=== PATIENT | male | born 1970 | race Caucasian/White ===

== ENCOUNTER 2019-04-18 13:00 | Inpatient (IN) ==
[2019-04-18] MEDS ORDERED: ONDANSETRON 4 MG/2 ML VIAL IV ONE (14:14)
[2019-04-18] MEDS ORDERED: 0.9 % SODIUM CHLORIDE 1,000 ML IV ONE (14:14)
[2019-04-18] MEDS ORDERED: PHENobarb/HYOSCY/ATROPINE/SCOP 1 DOSE BOTTLE PO ONE (14:15)
--- NOTE | 2019-04-18 14:19 | Emergency Department Note ---
Skin/Abscess/FB HPI - General Chief complaint: Skin/Abscess/Foreign Body Stated complaint: right foot sore Time Seen by Provider: 04/18/19 13:31 Source: patient Mode of arrival: wheelchair Limitations: no limitations - History of Present Illness HPI Narrative: This 49-year-old male comes emergency room because his right second third third toe has a sore on it. He is not very good at explaining or delineating exactly what happened with this. He reports that he has had a previous amputation a year ago of his right big toe. He is nauseated and has had multiple episodes of vomiting overnight. He has had a chronic lesion/ulcer/diabetic slow healing scab lesion of his right valdez. He developed a little bit of pain into the area of his toe although he says he has diabetic neuropathy and has not had feeling in his legs; some discomforts over the last 2 weeks. He denies fever, chills, sweats. REVIEW OF SYSTEMS: Denies chest pain, denies abdominal pain. Some nausea. Has been vomiting more than 10 times is a part of heartburn. It is hard for him to talk and breathe because of the discomfort in his throat. Denies diarrhea or constipation. Denies dysuria Denies headaches or weakness or lightheaded/dizziness. Has some chronic anxiety and depression. For this he has sertraline but his jar in his back of pills is without a top on it. Patient denies diabetic eye or kidney disease. He is type I diabetic since age 32. He is uncertain whether he still taking ramipril which is in his list. - Related Data Previous Rx's Medication Instructions Recorded insulin glargine 100) 100 unit/mL 20 unit SUB-Q QHS #10 ml 12/19/15 subcutaneous solution insulin lispro 100) 100 unit/mL 10 unit SUB-Q TID #10 ml 12/19/15 subcutaneous solution ramipril 2.5 mg capsule 2.5 mg PO QDAY #60 cap 12/19/15 Amoxicillin/Potassium Clav 875 mg PO Q12H #20 tablet 12/27/15 [Augmentin] blood sugar diagnostic See Dose Instructions .ROUTE 03/25/16 .MEDSUPPLY #100 each blood-glucose meter See Dose Instructions .ROUTE 03/27/16 .MEDSUPPLY #1 each Azithromycin [Zithromax] 250 mg PO DAILY #6 tablet 10/25/16 Cefuroxime [Ceftin] 500 mg PO Q12 #20 tablet 10/25/16 Furosemide [Lasix] 40 mg PO DAILY #7 tablet 11/01/16 Allergies Allergy/AdvReac Type Severity Reaction Status Date / Time No Known Drug Allergies Allergy Verified 04/18/19 13:04 Past Medical History - Past Medical History [facility] Narrative: Medical History Dental abscess (Acute) Pulmonary infiltrate in right lung on chest x-ray (Acute) Dyspnea (Acute) Pulmonary edema (Acute) Hyperglycemia (Acute) Tobacco abuse (Chronic) Type I diabetes mellitus (Chronic) Past Surgical History H/O knee surgery (Chronic) Family History Aunts Diabetes mellitus Medical history: Reports: DM (Type I, insulin using, since age 32.), hypertension, other (Peripheral neuropathy, diabetic). Denies: CVA, myocardial infarction Psychiatric history: Reports: anxiety, depression Surgical history ED: Reports: orthopedic, other (Right hallux amputation) - Social History smoking status: Current every day smoker Alcohol use: Reports: None Drug use: Reports: none, marijuana Physical Exam Limitations: no limitations General appearance: alert, in no apparent distress Head: atraumatic, normocephalic Eye: Present: EOMI Extremities: Present: other (Second toe, right foot, with severely necrotic and blackness in the distal one fourth of the toe. The nail comes off completely and easily as well as a swath of skin just hanging present. There is moderate to severe very foul odor. No actual drainage present. It is not particularly tender.) Neurological: Present: alert, oriented X3 Psychiatric: Present: flat affect, serious, other (Mild to moderately irritated to be asked to answer lots of questions partly he says because it hurts to talk (pain in his throat).) Skin: Present: warm, dry Course Vital Signs Temperature 97.7 F 04/18/19 13:00 Pulse Rate 103 H 04/18/19 13:00 Respiratory Rate 20 04/18/19 13:00 Blood Pressure 138/93 04/18/19 13:00 Pulse Oximetry (%) 100 04/18/19 13:00 Temperature 97.7 F 04/18/19 13:00 Pulse Rate 103 H 04/18/19 13:00 Respiratory Rate 20 04/18/19 13:00 Blood Pressure 138/93 04/18/19 13:00 Pulse Oximetry (%) 100 04/18/19 13:00 Skin/Abscess/Foreign Body - [facility] Narrative Medical decision making narrative: 2:12 PM - probable osteomyelitic right second toe. X-ray, labs, medication for nausea. 2:45 PM - sinus tachycardia on EKG but no acute changes. 5:05 PM - patient was a very difficult IV start and multiple staff attempted to obtain IV access. Eventually this was obtained with labs including a white count elevation now at 13.4 with previous at 9. Hemoglobin and hematocrit are normal at 14.8 and 44.9. Sodium is mildly low at 130. Anion gap is at 21.0 (significantly elevated). Creatinine is normal at 0.9 with previous being 1.0. Troponin is less than 0.01. Patient has been complaining of severe substernal chest burning and discomfort that is worsening when he lays down and to gastroesophageal reflux which has been quite severe. He reports that he has had a previous endoscopy but it is been a number of years ago. 5:30 PM - spoke with Dr. Jonny Tello, D.P.M., who agrees to consult with this circumstance and patient but hospitalist to be consulted. 5:46 PM - spoke with hospitalist, Dr. Grover, who kindly accepts this patient's inpatient care and to obtain the lactic acid and begin Vanco and Zosyn as soon as possible. Likely early sepsis. Venous blood gas also. 6:11 PM - spoke with Dr. Jonny Tello again, with recommendation to do the best I can to get a deeper culture and begin the antibiotics and he will see patient in follow-up. 6:24 PM - patient's eschar at the end of his toe is 2.5 cm vertical by 2.0 cm horizontal. It is firm and somewhat thick. Centrally appears to be actual bone that is doll, mottled, dry. I whittled down some of the surrounding tissue and obtain small amounts of internal tissue and cultured a moist area after removing some of the eschar. Vancomycin, Zosyn, insulin 5 units IV, potassium chloride 10 mEq p.o. also ordered. Because patient's symptoms in his chest and reflux seem so severe, Carafate 1 g also ordered. We will also do ease omeprazole IV. - Lab Data Lab results reviewed: Yes I reviewed the patient's lab results. Result diagrams: 04/18/19 15:49 04/18/19 15:49 Lab Results 04/18/19 04/18/19 04/18/19 Range/Units 15:48 15:49 15:49 WBC 13.4 H (4.5-11.0) K/mcL RBC 4.92 (4.50-5.90) M/mcL Hgb 14.8 (13.5-16.5) g/dL Hct 44.9 (41.0-55.0) % MCV 91.2 (80.0-100.0) fL MCH 30.1 (26.0-34.0) pg MCHC 33.0 (31.0-36.0) g/dL RDW 12.6 (11.5-14.5) % Plt Count 408 (140-440) K/mcL MPV 8.6 (7.4-10.4) fL Gran % 89.8 H (38.0-78.0) % Lymph % (Auto) 5.3 L (15.5-49.0) % [place] % (Auto) 4.8 (1.0-12.0) % Eos % (Auto) 0 (0.0-7.0) % Baso % (Auto) 0.1 (0.0-2.0) % Gran # 12.1 H (1.8-8.0) K/mcL Lymph # (Auto) 0.7 L (1.5-4.8) K/mcL [place] # (Auto) 0.6 (0.1-0.9) K/mcL Eos # (Auto) 0 (0.0-0.7) K/mcL Baso # (Auto) 0 (0.0-0.3) K/mcL Sodium 130 L (133-145) mmol/L Potassium 4.3 (3.3-5.1) mmol/L Chloride 85 L (96-108) mmol/L Carbon Dioxide 24 (22-30) mmol/L Anion Gap 21.0 H (8-16) BUN 24 H (6-20) mg/dl Creatinine 0.9 (0.7-1.2) mg/dl GFR Calculation 101 Glucose 361 H (70-105) mg/dL Calcium 9.7 (8.6-10.4) mg/dl Total Bilirubin 0.3 (0.0-1.0) mg/dL AST 10 (0-37) U/l ALT 10 (0-40) U/l Alkaline Phosphatase 130 H (39-117) U/L Troponin T < 0.01 (0-0.03) ng/ml C-Reactive Protein 5.4 H (0.0-0.8) mg/dl Total Protein 7.8 (5.9-8.4) gm/dL Albumin 3.8 (3.2-5.2) gm/dL Globulin 4.0 H (2.2-3.7) gm/dL Albumin/Globulin Ratio 1.0 (1.0-2.3) Beta-Hydroxybutyrate (< 0.27) mmol/L 04/18/19 Range/Units 15:49 WBC (4.5-11.0) K/mcL RBC (4.50-5.90) M/mcL Hgb (13.5-16.5) g/dL Hct (41.0-55.0) % MCV (80.0-100.0) fL MCH (26.0-34.0) pg MCHC (31.0-36.0) g/dL RDW (11.5-14.5) % Plt Count (140-440) K/mcL MPV (7.4-10.4) fL Gran % (38.0-78.0) % Lymph % (Auto) (15.5-49.0) % [place] % (Auto) (1.0-12.0) % Eos % (Auto) (0.0-7.0) % Baso % (Auto) (0.0-2.0) % Gran # (1.8-8.0) K/mcL Lymph # (Auto) (1.5-4.8) K/mcL [place] # (Auto) (0.1-0.9) K/mcL Eos # (Auto) (0.0-0.7) K/mcL Baso # (Auto) (0.0-0.3) K/mcL Sodium (133-145) mmol/L Potassium (3.3-5.1) mmol/L Chloride (96-108) mmol/L Carbon Dioxide (22-30) mmol/L Anion Gap (8-16) BUN (6-20) mg/dl Creatinine (0.7-1.2) mg/dl GFR Calculation Glucose (70-105) mg/dL Calcium (8.6-10.4) mg/dl Total Bilirubin (0.0-1.0) mg/dL AST (0-37) U/l ALT (0-40) U/l Alkaline Phosphatase (39-117) U/L Troponin T (0-0.03) ng/ml C-Reactive Protein (0.0-0.8) mg/dl Total Protein (5.9-8.4) gm/dL Albumin (3.2-5.2) gm/dL Globulin (2.2-3.7) gm/dL Albumin/Globulin Ratio (1.0-2.3) Beta-Hydroxybutyrate 3.47 H (< 0.27) mmol/L - Radiology Data Radiology results reviewed: Yes I reviewed the patient's radiology results. - EKG Data EKG attestation: Yes There are no EKG findings of acute coronary syndrome, Yes This EKG will be read by grey washer EKG shows normal: sinus rhythm Rate: tachycardia Disposition Pt seen by DELIVERY DRIVER ASSISTANT/PA only: No Clinical Impression: Difficult intravenous access, Methamphetamine use Sepsis Qualifiers: Sepsis type: sepsis due to unspecified organism Sepsis acute organ dysfunction status: without acute organ dysfunction Qualified Code(s): A41.9 - Sepsis, unspecified organism DKA (diabetic ketoacidoses) Qualifiers: Diabetes mellitus type: type 1 Diabetes mellitus complication detail: without coma Qualified Code(s): E10.10 - Type 1 diabetes mellitus with ketoacidosis without coma GERD (gastroesophageal reflux disease) Qualifiers: Esophagitis presence: esophagitis presence not specified Qualified Code(s): K21.9 - Gastro-esophageal reflux disease without esophagitis Diabetic toe ulcer Qualifiers: Diabetes mellitus type: type 1 Laterality: right Non-pressure ulcer stage: with bone involvement without evidence of necrosis Qualified Code(s): E10.621 - Type 1 diabetes mellitus with foot ulcer Disposition: Xfer As Inpt ([facility]) Referrals: Roma Fernando ARNP [Primary Care Provider] -
--- NOTE | 2019-04-18 14:32 | XRay Report ---
HISTORY: Necrotic gangrenous ulcer at the tip of the right second toe FINDINGS: There is a large defect in the skin over the distal end of the second toe. A portion of the toenail is missing. There is gas surrounding the tuft of the distal phalanx. The overlying cortex does not appear to be eroded and the bone remains normally mineralized. The joint spaces are normal in width. There is a flexion deformity at the DIP joint. The first toe has been surgically resected. Vascular calcifications are seen in the distal foot. IMPRESSION: Cellulitis surrounding the distal phalanx of the right second toe. The patient is at high risk of osteomyelitis. Interpreted and Authenticated by: Farhat Roy 04/18/19
[2019-04-18] MEDS ORDERED: LORazepam 2 MG/ML VIAL IM ONE (16:05)
[2019-04-18 16:36] LABS: Basophils # (Auto) 0 K/mcL (0.0-0.3); Basophils % (Auto) 0.1 % (0.0-2.0); Eosinophils # (Auto) 0 K/mcL (0.0-0.7); Eosinophils % (Auto) 0 % (0.0-7.0); Granulocytes % (Auto) 89.8 % (38.0-78.0); Hematocrit 44.9 % (41.0-55.0); Hemoglobin 14.8 g/dL (13.5-16.5); Lymphocytes # (Auto) 0.7 K/mcL (1.5-4.8); Lymphocytes % (Auto) 5.3 % (15.5-49.0); Mean Cell Volume 91.2 fL (80.0-100.0); Mean Platelet Volume 8.6 fL (7.4-10.4); Monocytes # (Auto) 0.6 K/mcL (0.1-0.9); Monocytes % (Auto) 4.8 % (1.0-12.0); Platelet Count 408 K/mcL (140-440); RBC 4.92 M/mcL (4.50-5.90); Red Cell Distribution Width 12.6 % (11.5-14.5); WBC 13.4 K/mcL (4.5-11.0)
[2019-04-18 16:58] LABS: ALT/SGPT 10 U/l (0-40); AST/SGOT 10 U/l (0-37); Albumin 3.8 gm/dL (3.2-5.2); Alkaline Phosphatase 130 U/L (39-117); Bilirubin,Total 0.3 mg/dL (0.0-1.0); Blood Urea Nitrogen 24 mg/dl (6-20); C-Reactive Protein 5.4 mg/dl (0.0-0.8); Calcium 9.7 mg/dl (8.6-10.4); Carbon Dioxide 24 mmol/L (22-30); Chloride 85 mmol/L (96-108); Glomerular Filtration Rate 101; Glucose 361 mg/dL (70-105)
[2019-04-18] MEDS ORDERED: SUCRALFATE 1 GM/10 ML ORAL.SUSP PO ONE (18:38)
[2019-04-18] MEDS ORDERED: PIPERACILLIN SODIUM/TAZOBACTAM 3.375 GM in DEXTROSE 5% IN WATER 50 ML IV ONE (18:43)
[2019-04-18] MEDS ORDERED: VANCOMYCIN 1,000 MG in 0.9 % SODIUM CHLORIDE 250 ML IV ONE (18:43)
[2019-04-18] MEDS ORDERED: INSULIN REGULAR, HUMAN 1 UNIT/0.01 ML UNIT IV ONE (18:48)
[2019-04-18] MEDS ORDERED: ESOMEPRAZOLE 40 MG VIAL IV SCH (19:15)
[2019-04-18 20:00] LABS: ABG Methemoglobin 0 % (0.4-1.5); VBG Base Excess 4.4 (-2.0-2.0); VBG HCO3 30.8 mmol/L (24.0-28.0); VBG PCO2 52.9 mmHg (41.0-51.0); VBG PH 7.38 U (7.32-7.42); VBG PO2 54 mmHg (25-40); VBG Total CO2 32.4 mmol/L (25.0-29.0)
[2019-04-18] MEDS ORDERED: ONDANSETRON 4 MG/2 ML VIAL IV PRN (20:35)
[2019-04-18] MEDS ORDERED: POTASSIUM CHLORIDE 20 MEQ PACKET PO PRN (20:35)
[2019-04-18] MEDS ORDERED: DEXTROSE 31 GM ORAL.SUSP PO PRN (20:35)
[2019-04-18] MEDS ORDERED: MAGNESIUM HYDROXIDE 30 ML ORAL.SUSP PO PRN (20:35)
[2019-04-18] MEDS ORDERED: ACETAMINOPHEN 1,000 MG/100 ML BOTTLE IV PRN (20:35)
[2019-04-18] MEDS ORDERED: VANCOMYCIN PER PHARMACY IV SCH (20:35)
[2019-04-18] MEDS ORDERED: guaiFENesin/CODEINE 10 ML UDC PO PRN (20:35)
[2019-04-18] MEDS ORDERED: MAGNESIUM SULFATE 2 GM/50 ML BAG IV PRN (20:35)
[2019-04-18] MEDS ORDERED: ACETAMINOPHEN 325 MG TABLET PO PRN (20:35)
[2019-04-18] MEDS ORDERED: DEXTROSE 50% 50 ML VIAL IV PRN (20:35)
[2019-04-18] MEDS ORDERED: NOREPINEPHRINE BITARTRATE 16 MG in 0.9 % SODIUM CHLORIDE 234 ML IV SCH (20:35)
--- NOTE | 2019-04-18 21:01 | Internal Med History&Physical ---
Medical - H&P: [facility] Patient information: Note initiated : 04/18/19 at 8:57 pm Service Date, if different from initiated Date: [] Patient: Remy Bocanegra a 49 y/o M admitted on 04/18/19 for right foot sore. Chief Complaint: [] Chief complaint: Left second toe pain/gangrene History of present illness: Mr. Bocanegra is a 49 year old M with history of poorly controlled diabetes/early CAD/CABG at age 48/PVD status post right big toe amputation who presents to the ER with right second toe infection/pain that has worsened over the last 4 weeks. Symptoms started after roughly a month ago patient injured his right second toe while working in the yard. Patient did not seek medical attention and continue to self address to wound however noticed wound getting worse turning bluish and then finally black along with increasing pain swelling. His blood sugar control also remain erratic. He denies associated fever shaking chills rash or joint pain. Initial work-up in the ER was consistent with sepsis with white count over 13,000 along with blood sugars over 350 and a cellulitic change on right foot imaging. Podiatry was consulted. Hospitalist services requested for admission in light of severe sepsis with cellulitis At the time of evaluation patient is alert and oriented. He was able to endorse history as above and answer to most of the questions. Denies diarrhea dysuria, rash, chest pain, cough, headache or photophobia. He follows up with Dr. Escoto cardiology at [place] Review of systems 10 point review of system was performed and is negative except as discussed above Medical - H&P: PMH Medical history: History of coronary disease status post CA CABG at age 48 Peripheral vascular disease status post right big toe amputation/stenting right lower extremity GERD Peripheral neuropathy Poorly controlled DM type II on basal prandial insulin Anxiety disorder Surgical history: CABG Right knee surgery Right big toe amputation Right lower extremity stenting by Dr. Ariza Pertinent family history: Early family history of coronary artery disease Onset diabetes Functional capacity: independent ambulation Smoking status: Current every day smoker (5 to 6 cigarettes) Drug use: heroin (former) Medical - H&P: Meds Home Medications Medication Instructions Recorded Confirmed Type insulin glargine 100) 100 unit/mL 20 unit SUB-Q QHS #10 ml 12/19/15 12/19/15 Rx subcutaneous solution insulin lispro 100) 100 unit/mL 10 unit SUB-Q TID #10 ml 12/19/15 12/19/15 Rx subcutaneous solution ramipril 2.5 mg capsule 2.5 mg PO QDAY #60 cap 12/19/15 12/19/15 Rx blood sugar diagnostic See Dose Instructions .ROUTE 03/25/16 Rx .MEDSUPPLY #100 each blood-glucose meter See Dose Instructions .ROUTE 03/27/16 Rx .MEDSUPPLY #1 each Carvedilol [Coreg] 3.125 mg PO BID 04/18/19 04/18/19 History Pantoprazole Sodium 40 mg PO AC 04/18/19 04/18/19 History Sertraline [Zoloft] 50 mg PO QAM 04/18/19 04/18/19 History Spironolactone [Aldactone] 50 mg PO DAILY 04/18/19 04/18/19 History Torsemide [Demadex] 20 mg PO DAILY 04/18/19 04/18/19 History Allergies Allergy/AdvReac Type Severity Reaction Status Date / Time No Known Drug Allergies Allergy Verified 04/18/19 13:04 Medical - H&P: Exam - Constitutional Vitals: Temp Pulse Resp BP Pulse Ox 97.7 F 59 L 18 130/83 98 04/18/19 13:00 04/18/19 19:51 04/18/19 19:51 04/18/19 19:51 04/18/19 19:51 General appearance: no acute distress Exam: Alert oriented Eye movement symmetrical Oral cavity dry Head normocephalic No ear nose discharge Neck lymphadenopathy S1-S2 regular rhythm, midline sternotomy incision scar Diminished breath sounds bases Abdomen soft nontender Right lower extremity great toe amputation, second toe gangrenous change at the distal phalanx No lymphedema Skin no suspicious lesion Psych alert cooperative no anxiety Neuro nonfocal Medical - H&P: Reslt - Labs CBC & Chem 7: 04/19/19 03:40 04/19/19 03:40 Labs: Short CBC 04/18/19 Range/Units 15:49 WBC 13.4 H (4.5-11.0) K/mcL Hgb 14.8 (13.5-16.5) g/dL Hct 44.9 (41.0-55.0) % Plt Count 408 (140-440) K/mcL BMP 04/18/19 15:49 Sodium 130 L Potassium 4.3 Chloride 85 L Carbon Dioxide 24 BUN 24 H Creatinine 0.9 Glucose 361 H Calcium 9.7 Cardiac Enzymes 04/18/19 Range/Units 15:48 Troponin T < 0.01 (0-0.03) ng/ml Liver Function 04/18/19 Range/Units 15:49 Total Bilirubin 0.3 (0.0-1.0) mg/dL AST 10 (0-37) U/l ALT 10 (0-40) U/l Alkaline Phosphatase 130 H (39-117) U/L Albumin 3.8 (3.2-5.2) gm/dL - ABG Interpretation ABG results: 04/18/19 19:26 ABG Methemoglobin 0 L VBG pH 7.38 VBG pCO2 52.9 H VBG pO2 54 H VBG HCO3 30.8 H VBG Total CO2 32.4 H VBG O2 Saturation 75.0 H VBG Base Excess 4.4 H Medical - H&P: A/P (1) Type 1 diabetes, uncontrolled, with cellulitis of foot Current visit: Yes Status: Acute * Cellulitis with likely gangrene right second toe-broad antibiotic coverage, podiatry consult, cultures, pain management. Possible osteomyelitis imaging * Poorly controlled diabetes continue basal prandial insulin. CC diet/diabetic education * Severe sepsis second above continue broad antibiotic coverage of vancomycin and Zosyn. Cultures pending, sepsis management per guidelines * GERD continue PPI * History of CAD/congestive heart failure continue CAMDEN inhibitor/beta- maxwell/spironolactone/Demadex * Anxiety disorder continue sertraline * Full code * Prophylaxis heparin Plan * Inpatient admission * Sepsis management guidelines * Further imaging to rule out osteomyelitis * Podiatry consult * N.p.o. after midnight * Broad antibiotic coverage * Prior medical condition management as above
[2019-04-18 21:24] LABS: Appearance,Urine CLEAR; Bacteria,Urine 0 /hpf (0); Bilirubin,Urine NEG (NEG); Color,Urine YELLOW; Culture Indicated,Urine NO; Glucose,Urine (UA) >=500 mg/dL (NEG); Ketones,Urine 80 mg/dL (NEG); Leukocyte Esterase,Urine NEG /uL (NEG); Mucus,Urine FEW /hpf (0); Nitrate,Urine NEG (NEG); Protein,Urine 100 mg/dL (NEG); Specific Gravity,Urine 1.031 (1.000-1.035); Urine Blood 0.2 mg/dL (<0.03); Urine Hyaline Cast 7 /lpf (0-2); Urine RBC 13 /hpf (0-1); Urine Squamous Epithelial Cell < 1 /hpf (0-4); Urine WBC 2 /hpf (0-4); Urobilinogen,Urine NEG (NEG)
[2019-04-18] MEDS: traZODone HCL 50 MG TABLET PO PRN (21:30)
[2019-04-18] MEDS ORDERED: HYDROcodone/APAP 10/325MG TABLET PO ONE (21:44)
[2019-04-18] MEDS: DOCUSATE SODIUM 100 MG CAPSULE PO SCH (21:46)
[2019-04-18] MEDS: SENNOSIDES/DOCUSATE SODIUM 1 TAB TABLET PO SCH (21:47)
[2019-04-18] MEDS: HEPARIN 5,000 UNIT/ML VIAL SQ SCH (21:48)
[2019-04-18] MEDS: INSULIN LISPRO 1 UNIT/0.01 ML UNIT SQ SCH (21:48)
[2019-04-18] MEDS: INSULIN GLARGINE, HUMAN 1 UNIT/0.01 ML SQ SCH (21:49)
[2019-04-18] MEDS: VANCOMYCIN 1,500 MG in 0.9 % SODIUM CHLORIDE 500 ML IV SCH (21:50)
[2019-04-18] MEDS: 0.9 % SODIUM CHLORIDE 1,000 ML IV SCH (21:50)
[2019-04-18] MEDS: CYANOCOBALAMIN (VITAMIN B-12) 500 MCG TABLET PO SCH (21:58)
[2019-04-18] MEDS: CARVEDILOL 3.125 MG TABLET PO SCH (21:59)
[2019-04-18] MEDS: NICOTINE 14 MG PATCH TOPICAL SCH (22:01)
[2019-04-18] MEDS: 0.9 % SODIUM CHLORIDE 10 ML SYRINGE IV SCH (22:03)
[2019-04-19] MEDS: PIPERACILLIN SODIUM/TAZOBACTAM 3.375 GM in DEXTROSE 5% IN WATER 50 ML IV SCH ×5 (00:03→23:24)
[2019-04-19 05:25] LABS: Hematocrit 39.3 % (41.0-55.0); Hemoglobin 13.1 g/dL (13.5-16.5); Mean Cell Volume 91.8 fL (80.0-100.0); Mean Corpuscular HGB Conc 33.2 g/dL (31.0-36.0); Mean Platelet Volume 8.6 fL (7.4-10.4); Platelet Count 372 K/mcL (140-440); RBC 4.28 M/mcL (4.50-5.90); Red Cell Distribution Width 12.8 % (11.5-14.5); WBC 12.6 K/mcL (4.5-11.0)
[2019-04-19] MEDS: 0.9 % SODIUM CHLORIDE 10 ML SYRINGE IV SCH ×3 (05:30→20:36)
[2019-04-19 05:51] LABS: ALT/SGPT 8 U/l (0-40); AST/SGOT 9 U/l (0-37); Albumin/Globulin Ratio 0.9 (1.0-2.3); Alkaline Phosphatase 112 U/L (39-117); Bilirubin,Direct < 0.2 mg/dL (0.0-0.3); Bilirubin,Total 0.3 mg/dL (0.0-1.0); Blood Urea Nitrogen 25 mg/dl (6-20); Calcium 8.7 mg/dl (8.6-10.4); Carbon Dioxide 28 mmol/L (22-30); Chloride 90 mmol/L (96-108); Globulin 3.4 gm/dL (2.2-3.7); Glomerular Filtration Rate 101; Glucose 297 mg/dL (70-105); Lactate Dehydrogenase 175 U/L (94-250); Triglycerides 88 mg/dl (<150); Uric Acid 4.3 mg/dL (2.5-8.0)
[2019-04-19 06:40] LABS: Lymphocytes % 8 % (15-49); Monocytes % (Manual) 10 % (1-12); Platelet Estimate NORMAL (NORMAL); RBC Morphology NORMAL (NORMAL); Segmented Neutrophils % 82 % (38-78)
[2019-04-19] MEDS ORDERED: NOREPINEPHRINE BITARTRATE 16 MG in 0.9 % SODIUM CHLORIDE 234 ML IV PRN (07:00)
[2019-04-19] MEDS: HYDROcodone/APAP 10/325MG TABLET PO PRN ×4 (07:10→23:24)
--- NOTE | 2019-04-19 08:10 | XRay Report ---
HISTORY: Chest pain FINDINGS: The lungs are clear. The spiculated mass seen in the right apex on the prior chest CT done at [facility] on 03/31/18 is not clearly identified on today's study. Heart size is normal with left ventricular prominence. There has been prior coronary bypass surgery and insertion of a prosthetic mitral valve. No congestive heart failure or pleural effusion are present. IMPRESSION: No acute abnormality Interpreted and Authenticated by: Farhat Roy 04/19/19
--- NOTE | 2019-04-19 08:39 | XRay Report ---
HISTORY: PICC line insertion. Findings: A PICC line has been inserted through the right arm. The tip of the catheter overlies the head of the right clavicle near the manubrium. This is in the general location of the junction of the right subclavian vein and superior vena cava. There is no widening in the mediastinum. No pneumothorax or pleural effusion are present. The lungs are clear. The heart size is normal. Postoperative changes are noted in the heart following bypass surgery and mitral valve insertion. Impression: no complication following PICC line insertion. ICU nurse was called with results Interpreted and Authenticated by: Farhat Roy 04/19/19
--- NOTE | 2019-04-19 09:37 | Internal Med Progress Note ---
Medical - PN: Subj Patient information: Note initiated : 04/19/19 at 9:35 am Service Date, if different from initiated Date: [] Patient: Remy Bocanegra a 49 y/o M admitted on 04/18/19 for right foot sore. Chief Complaint: [] Interval history: Mr. Bocanegra is a 49 year old M with history of poorly controlled diabetes/early CAD/CABG at age 48/PVD status post right big toe amputation who presents to the ER with right second toe infection/pain that has worsened over the last 4 weeks. Symptoms started after roughly a month ago patient injured his right second toe while working in the yard. Patient did not seek medical attention and continue to self address to wound however noticed wound getting worse turning bluish and then finally black along with increasing pain swelling. His blood sugar control also remain erratic. He denies associated fever shaking chills rash or joint pain. Initial work-up in the ER was consistent with sepsis with white count over 13,000 along with blood sugars over 350 and a cellulitic change on right foot imaging. Podiatry was consulted. Hospitalist services requested for admission in light of severe sepsis with cellulitis At the time of evaluation patient is alert and oriented. He was able to endorse history as above and answer to most of the questions. Denies diarrhea dysuria, rash, chest pain, cough, headache or photophobia. He follows up with Dr. Escoto cardiology at [place] 04/19-patient doing well. No overnight events. Wound care podiatry consulted. White count of 12.6. On antibiotic coverage. Pain in good control. She was improving on basal prandial insulin. Keep n.p.o. evaluation by podiatry. Minimal anxiety. No concerns per nursing staff. Persistent tachycardia. Urine drug screen ordered. - Constitutional Vitals: Vital Signs Temp Pulse Resp BP Pulse Ox 98.8 F 59 L 18 107/73 98 04/19/19 07:01 04/18/19 19:51 04/19/19 07:01 04/19/19 07:01 04/19/19 07:16 Period Temp Pulse Resp BP Sys/Craven Pulse Ox Last 24 Hr 97.7 F-98.8 F 59-118 18-20 107-156/73-120 95-100 Intake and Output 04/18/19 04/19/19 04/19/19 21:59 05:59 13:59 Intake Total 1050 170 Balance 1050 170 Weight 166 lb 12.8 oz Intake & Output: Intake & Output 04/18/19 04/19/19 04/19/19 21:59 05:59 13:59 Intake Total 1050 170 Balance 1050 170 Weight 166 lb 12.8 oz Intake: IV 1050 50 Sodium Chloride 0.9% 1,000 ml @ 1000 Wide Open IV BOLUS ONE Rx#: [id number] Zosyn 3.375 gm In Dextrose 5% 50 50 in Water 50 ml @ 100 mls/hr IV Q6H TONY Rx#:[id number] Oral 120 General appearance: no acute distress Exam: Resting comfortably Nonlabored breathing Persistent tachycardia on telemetry Afebrile Minimal anxiety Right second toe gangrenous change Medical - PN: Obj Da - Labs CBC & Chem 7: 04/19/19 03:40 04/19/19 03:40 Labs: Abnormal Lab Results 04/19/19 04/19/19 04/18/19 03:40 03:40 19:26 WBC 12.6 H RBC 4.28 L Hgb 13.1 L Hct 39.3 L Gran % Lymph % (Auto) Gran # Lymph # (Auto) Seg Neutrophils % 82 H Lymphocytes % 8 L ABG Methemoglobin 0 L VBG pCO2 52.9 H VBG pO2 54 H VBG HCO3 30.8 H VBG Total CO2 32.4 H VBG O2 Saturation 75.0 H VBG Base Excess 4.4 H Carboxyhemoglobin 4.0 H Sodium 130 L Chloride 90 L Anion Gap BUN 25 H Glucose 297 H Alkaline Phosphatase C-Reactive Protein Albumin 3.0 L Globulin Albumin/Globulin Ratio 0.9 L Beta-Hydroxybutyrate Urine Protein Urine Glucose (UA) Urine Ketones Urine Occult Blood Urine RBC Hyaline Casts 04/18/19 04/18/19 04/18/19 19:10 15:49 15:49 WBC RBC Hgb Hct Gran % Lymph % (Auto) Gran # Lymph # (Auto) Seg Neutrophils % Lymphocytes % ABG Methemoglobin VBG pCO2 VBG pO2 VBG HCO3 VBG Total CO2 VBG O2 Saturation VBG Base Excess Carboxyhemoglobin Sodium 130 L Chloride 85 L Anion Gap 21.0 H BUN 24 H Glucose 361 H Alkaline Phosphatase 130 H C-Reactive Protein 5.4 H Albumin Globulin 4.0 H Albumin/Globulin Ratio Beta-Hydroxybutyrate 3.47 H Urine Protein 100 A Urine Glucose (UA) >=500 A Urine Ketones 80 A Urine Occult Blood 0.2 A Urine RBC 13 H Hyaline Casts 7 H 04/18/19 15:49 WBC 13.4 H RBC Hgb Hct Gran % 89.8 H Lymph % (Auto) 5.3 L Gran # 12.1 H Lymph # (Auto) 0.7 L Seg Neutrophils % Lymphocytes % ABG Methemoglobin VBG pCO2 VBG pO2 VBG HCO3 VBG Total CO2 VBG O2 Saturation VBG Base Excess Carboxyhemoglobin Sodium Chloride Anion Gap BUN Glucose Alkaline Phosphatase C-Reactive Protein Albumin Globulin Albumin/Globulin Ratio Beta-Hydroxybutyrate Urine Protein Urine Glucose (UA) Urine Ketones Urine Occult Blood Urine RBC Hyaline Casts Meds: Medications Acetaminophen (Tylenol) 650 mg PO Q4-6HP PRN PRN Reason: PAIN/FEVER > 101 Hydrocodone Bitart/Acetaminophen (Brilliant 10/325mg) 1 tab PO Q4-6HP PRN PRN Reason: PAIN LEVEL 3-6 Last Admin: 04/19/19 07:10 Dose: 1 tab Documented by: [facility] Last Admin: 04/18/19 21:59 Dose: 3.125 mg Documented by: Cyanocobalamin (Vitamin B-12) 1,000 mcg PO BID [facility] Stop: 04/23/19 09:01 Last Admin: 04/18/19 21:58 Dose: 1,000 mcg Documented by: Dextrose (Dextrose 50%) 0 ml IV UD PRN PRN Reason: Hypoglycemia Diagnostic Test (Pha) (Accu-Chek) 1 each FS ACHS [facility] Last Admin: 04/18/19 21:50 Dose: 1 each Documented by: Docusate Sodium (Colace) 100 mg PO BID [facility] Last Admin: 04/18/19 21:46 Dose: Not Given Documented by: Folic Acid (Folic Acid) 1 mg PO DAILY [facility] Glucose (Insta-Glucose) 15 gm PO PRN PRN PRN Reason: Hypoglycemia Guaifenesin/Codeine Phosphate (Robitussin Ac) 10 ml PO Q4HP PRN PRN Reason: Cough Heparin Sodium (Porcine) (Heparin) 5,000 unit SQ Q12 [facility] Last Admin: 04/18/19 21:48 Dose: 5,000 unit Documented by: Heparin Sodium (Porcine) (Heparin Flush) 2 ml IV Q12 [facility] Sodium Chloride (Sodium Chloride 0.9%) 1,000 mls @ 50 mls/hr IV .Q20H [facility] Stop: 04/21/19 08:34 Last Admin: 04/18/19 21:50 Dose: 50 mls/hr Documented by: Acetaminophen (Ofirmev) 1,000 mg in 100 mls @ 200 mls/hr IV Q6HP PRN PRN Reason: PAIN/FEVER > 101 Magnesium Sulfate (Magnesium Sulfate) 2 gm in 50 mls @ 50 mls/hr IV UD PRN PRN Reason: MG = or < 1.7 Piperacillin Sod/Tazobactam (Sod 3.375 gm/ Dextrose) 50 mls @ 100 mls/hr IV Q6H [facility]; Protocol Last Admin: 04/19/19 05:30 Dose: 100 mls/hr Documented by: Vancomycin HCl 1,500 mg/ (Sodium Chloride) 500 mls @ 333.3 mls/hr IV Q12H [facility] Last Admin: 04/18/19 21:50 Dose: 333.3 mls/hr Documented by: Norepinephrine Bitartrate 16 (mg/ Sodium Chloride) 250 mls @ 9.375 mls/hr IV Q24HP PRN; Protocol PRN Reason: Hypotension Insulin Glargine (Lantus) 20 unit SQ QHS [facility] Last Admin: 04/18/19 21:49 Dose: 20 units Documented by: Insulin Glargine (Lantus) 10 unit SQ DAILY [facility] Insulin Human Lispro (Humalog) 0 unit SQ ACHS [facility]; Protocol Last Admin: 04/18/19 21:48 Dose: 4 units Documented by: Iron Carb/Multivit/Uinta/Folic Acid (Multivitamin W/Minerals) 1 tab PO DAILY [facility] Magnesium Hydroxide (Milk Of Magnesia) 30 ml PO HSP PRN PRN Reason: Constipation Nicotine (Nicoderm) 14 mg TOPICAL DAILY@1000 [facility] Last Admin: 04/18/19 22:01 Dose: 14 mg Documented by: Ondansetron HCl (Zofran) 4 mg IV Q4-6HP PRN PRN Reason: Nausea And Vomiting Pantoprazole Sodium (Protonix) 40 mg PO ACB [facility] Potassium Chloride (Klor-Con) 40 meq PO DAILYP PRN PRN Reason: K+ < 3.5 Senna/Docusate Sodium (Senna Plus Tablet) 1 tab PO HS [facility] Last Admin: 04/18/19 21:47 Dose: Not Given Documented by: Sertraline HCl (Zoloft) 50 mg PO QAM [facility] Sitagliptin Phosphate (Januvia) 100 mg PO DAILY [facility] Sodium Chloride (Saline Flush) 10 ml IV Q8 [facility] Last Admin: 04/19/19 05:30 Dose: Not Given Documented by: Spironolactone (Aldactone) 50 mg PO DAILY [facility] Thiamine HCl (Vitamin B1) 100 mg PO DAILY [facility] Torsemide (Demadex) 20 mg PO DAILY [facility] Trazodone HCl (Desyrel) 50 mg PO HSP PRN PRN Reason: Insomnia Last Admin: 04/18/19 21:30 Dose: 50 mg Documented by: Vancomycin HCl (Vancomycin Per Pharmacy) 1 order IV UD [facility]ON[facility]; Protocol - ABG Interpretation ABG results: 04/18/19 19:26 ABG Methemoglobin 0 L VBG pH 7.38 VBG pCO2 52.9 H VBG pO2 54 H VBG HCO3 30.8 H VBG Total CO2 32.4 H VBG O2 Saturation 75.0 H VBG Base Excess 4.4 H Medical - PN: A/P - Time Spent With Patient Total time spent is greater than 50% in coordination of care (as documented) at patient's floor/unit and/or counseling patient: 25 - 35 minutes (1) Type 1 diabetes, uncontrolled, with cellulitis of foot Status: Acute Assessment and plan: * Cellulitis with gangrene right second toe-continue antibiotic coverage, podiatry and wound care consulted, await cultures. * Pain management on as needed opioids * Poorly controlled diabetes continue basal prandial insulin. Continue CC diet/diabetic education. Improved fasting blood sugars * Severe sepsis second above continue broad antibiotic coverage of vancomycin and Zosyn. White count downtrending. Await cultures. Continue broad antibiotic coverage. * Tachycardia likely secondary to sepsis however rule out substance abuse, check UDS * GERD continue PPI * History of CAD/congestive heart failure continue CAMDEN inhibitor/beta- maxwell/spironolactone/Demadex * Anxiety disorder continue sertraline * Full code * Prophylaxis heparin Plan * continue antibiotic coverage * Keep n.p.o. * Wound care/podiatry consult * Prior medical condition management as above Current Visit: Yes
[2019-04-19] MEDS ORDERED: SCOPOLAMINE 1 PATCH PATCH TOPICAL PRN (10:54)
[2019-04-19] MEDS ORDERED: IPRATROPIUM/ALBUTEROL 3 ML AMPUL.NEB NEB PRN ×2 (10:54→12:01)
[2019-04-19] MEDS: INSULIN GLARGINE, HUMAN 1 UNIT/0.01 ML SQ SCH ×2 (10:56→20:22)
[2019-04-19] MEDS: MULTIVIT,THER IRON,CA,FA & MIN 1 TABLET PO SCH (10:57)
[2019-04-19] MEDS: VANCOMYCIN 1,500 MG in 0.9 % SODIUM CHLORIDE 500 ML IV SCH ×2 (10:57→20:29)
[2019-04-19] MEDS: HEPARIN 5,000 UNIT/ML VIAL SQ SCH ×2 (10:59→20:23)
[2019-04-19] MEDS: CARVEDILOL 3.125 MG TABLET PO SCH ×2 (11:00→17:27)
[2019-04-19] MEDS: INSULIN LISPRO 1 UNIT/0.01 ML UNIT SQ SCH ×4 (11:00→20:22)
--- NOTE | 2019-04-19 11:13 | Orthopedic Consult Note ---
History of Present Illness - [facility] Patient information: Note initiated : 04/19/19 at 11:10 am Service Date, if different from initiated Date: [] Patient: Remy Bocanegra 49 y/o M admitted on 04/18/19 for right foot sore. Chief Complaint: [Right foot second toe is black] Review of Systems Constitutional: as per [facility] Medications and Allergies Home Medications Medication Instructions Recorded Confirmed Type insulin glargine 100) 100 unit/mL 20 unit SUB-Q QHS #10 ml 12/19/15 12/19/15 Rx subcutaneous solution insulin lispro 100) 100 unit/mL 10 unit SUB-Q TID #10 ml 12/19/15 12/19/15 Rx subcutaneous solution ramipril 2.5 mg capsule 2.5 mg PO QDAY #60 cap 12/19/15 12/19/15 Rx blood sugar diagnostic See Dose Instructions .ROUTE 03/25/16 Rx .MEDSUPPLY #100 each blood-glucose meter See Dose Instructions .ROUTE 03/27/16 Rx .MEDSUPPLY #1 each Carvedilol [Coreg] 3.125 mg PO BID 04/18/19 04/18/19 History Pantoprazole Sodium 40 mg PO AC 04/18/19 04/18/19 History Sertraline [Zoloft] 50 mg PO QAM 04/18/19 04/18/19 History Spironolactone [Aldactone] 50 mg PO DAILY 04/18/19 04/18/19 History Torsemide [Demadex] 20 mg PO DAILY 04/18/19 04/18/19 History Allergies Allergy/AdvReac Type Severity Reaction Status Date / Time No Known Drug Allergies Allergy Verified 04/18/19 13:04 Physical Examination - Ankle & Foot right Foot appearance: other (Necrotic ulceration and gangrene of toe right second) Assessment and Plan (1) Diabetic toe ulcer Status: Acute Qualifiers: Diabetes mellitus type: type 1 Laterality: right Non-pressure ulcer stage: with bone involvement without evidence of necrosis Qualified Code(s): E10.621 - Type 1 diabetes mellitus with foot ulcer; L97.516 - Non-pressure chronic ulcer of other part of right foot with bone involvement without evidence of necrosis - Narrative A/P Narrative: Heart Inspection: No cardiac heaves or lifts. Symmetrical expansion with respiration, no other wall motions. Palpation: No thrills appreciated. Point of maximal impulse (PMI) (apical impulse) noted at midclavicular line, in fifth intercostal space. Auscultation: Normal S1 and S2, with regular rate and rhythm. S2 > S1 at the base, S1 > S2 at apex. No splitting of the heart sounds heard. No murmur. No S3 or S4, no friction rub. Lungs Lungs are clear to auscultation and percussion bilaterally No crackles heard in the lung bases bilaterally Planned today: Amputation right foot second toe
[2019-04-19] MEDS ORDERED: HYDROmorphone 2 MG/ML VIAL IV PRN (12:01)
[2019-04-19] MEDS ORDERED: ONDANSETRON 4 MG/2 ML VIAL IV PRN (12:01)
[2019-04-19] MEDS ORDERED: fentaNYL 100 MCG/2 ML VIAL IV PRN (12:01)
[2019-04-19] MEDS ORDERED: fentaNYL 100 MCG/2 ML VIAL IV ONE (12:02)
[2019-04-19] MEDS ORDERED: GLYCOPYRROLATE 0.2 MG/ML VIAL IV ONE (12:02)
[2019-04-19] MEDS ORDERED: ONDANSETRON 4 MG/2 ML VIAL IV ONE (12:02)
[2019-04-19] MEDS ORDERED: KETAMINE 100 MG/ML ML IV ONE (12:02)
[2019-04-19] MEDS ORDERED: MIDAZOLAM 2 MG/2 ML VIAL IV ONE (12:02)
[2019-04-19] MEDS ORDERED: LACTATED RINGERS 1,000 ML IV SCH (12:15)
[2019-04-19] MEDS ORDERED: BUPIVACAINE 0.5% 50 ML VIAL IJ ONE ×2 (12:33→12:34)
--- NOTE | 2019-04-19 12:40 | Brief Operative Note ---
Date of procedure: 04/19/19 Pre-op diagnosis: Gangrene toe, right second Post-op diagnosis: same Procedure: Amputation of right second toe at the metatarsal phalangeal joint Grafts/Implants: No Anesthesia: local Complications: none Surgeon: Jonny Tello Estimated blood loss (cc): 15 Specimens Removed/Pathology: other (right second toe) Condition: stable Disposition: floor
[2019-04-19 12:42] LABS: INR 1.1 (0.9-1.1); Prothrombin Time 14.1 sec (11.9-14.5)
[2019-04-19] MEDS ORDERED: LIDOCAINE 1% 20 ML VIAL SQ ONE (12:48)
--- NOTE | 2019-04-19 12:57 | Operative Note ---
DATE OF OPERATION: 04/19/2019 PREOPERATIVE DIAGNOSIS: Gangrene, right second toe. POSTOPERATIVE DIAGNOSIS: Gangrene, right second toe. PROCEDURE: Amputation, right second toe at the metatarsophalangeal joint. SURGEON: Jonny Tello DPM IMPLANTS: None. ANESTHESIA: Local. COMPLICATIONS: None. BLOOD LOSS: 15mL SPECIMENS: Right second toe. CONDITION: Stable. DISPOSITION: Floor. DESCRIPTION OF PROCEDURE: The patient was brought to the operating room and placed on the operative table in the supine position. Right lower extremity was scrubbed, prepped and draped in the usual aseptic manner. Local anesthesia was established, utilizing 10 mL of a 1:1 mixture of 0.5% Marcaine plain and 1% lidocaine plain infiltrated proximal the second metatarsophalangeal joint. A fishmouth incision was created around the metatarsophalangeal joint extending dorsally on the second metatarsal. Full thickness incision was created. The distal half of the second toe was completely necrotic and gangrenous with malodor. This toe was completely amputated through the metatarsophalangeal joint after releasing the collateral ligamenture. The area was irrigated with copious amounts of sterile saline. A culture swab from the toe amputation was taken for analysis. Xeroform, 4 x 4 gauze, Kerlix, and CAMDEN were applied following closure, which was done with 4-0 Vicryl and 3-0 nylon in a horizontal interrupted suture fashion. The patient tolerated the procedure and anesthesia well with minimal pain. He will continue to be monitored on the floor and will be discharged once stable and follow up in clinic accordingly. KDJ:[email or web address] Job ID: [id number] Doc ID: [id number] Jonny Tello DPM MTDSally
[2019-04-19] MEDS: NICOTINE 14 MG PATCH TOPICAL SCH (13:22)
[2019-04-19] MEDS: THIAMINE 100 MG TABLET PO SCH (13:24)
[2019-04-19] MEDS: SPIRONOLACTONE 25 MG TABLET PO SCH (13:24)
[2019-04-19] MEDS: sitaGLIPtin 100 MG TABLET PO SCH (13:25)
[2019-04-19] MEDS: FOLIC ACID 1 MG TABLET PO SCH (13:25)
[2019-04-19] MEDS: SERTRALINE 50 MG TABLET PO SCH (13:25)
[2019-04-19] MEDS: TORSEMIDE 10 MG TABLET PO SCH (13:26)
[2019-04-19] MEDS: CYANOCOBALAMIN (VITAMIN B-12) 500 MCG TABLET PO SCH ×2 (13:26→20:23)
[2019-04-19] MEDS: DOCUSATE SODIUM 100 MG CAPSULE PO SCH ×2 (13:26→20:23)
[2019-04-19] MEDS: PANTOPRAZOLE 40 MG TABLET PO SCH (13:26)
[2019-04-19] MEDS ORDERED: VANCOMYCIN 500 MG VIAL ONE ×2 (20:16→20:17)
[2019-04-19] MEDS: SENNOSIDES/DOCUSATE SODIUM 1 TAB TABLET PO SCH (20:23)
[2019-04-19] MEDS: traZODone HCL 50 MG TABLET PO PRN (20:23)
[2019-04-19] MEDS ORDERED: INSULIN GLARGINE, HUMAN 1 UNIT/0.01 ML SQ SCH (21:00)
[2019-04-19] MEDS ORDERED: HYDROmorphone 2 MG/ML VIAL ONE (22:17)
[2019-04-19] MEDS: 0.9 % SODIUM CHLORIDE 1,000 ML IV SCH (23:31)
[2019-04-20] MEDS: HYDROcodone/APAP 10/325MG TABLET PO PRN ×5 (03:20→21:35)
[2019-04-20] MEDS: PIPERACILLIN SODIUM/TAZOBACTAM 3.375 GM in DEXTROSE 5% IN WATER 50 ML IV SCH ×4 (05:30→23:45)
[2019-04-20] MEDS: 0.9 % SODIUM CHLORIDE 10 ML SYRINGE IV SCH ×3 (05:30→21:38)
[2019-04-20] MEDS: HYDROmorphone 2 MG/ML VIAL IV PRN ×2 (06:22→11:45)
[2019-04-20 07:00] LABS: Hematocrit 30.7 % (41.0-55.0); Hemoglobin 10.3 g/dL (13.5-16.5); Mean Cell Volume 91.2 fL (80.0-100.0); Mean Corpuscular HGB Conc 33.7 g/dL (31.0-36.0); Mean Platelet Volume 8.3 fL (7.4-10.4); Platelet Count 336 K/mcL (140-440); RBC 3.36 M/mcL (4.50-5.90); Red Cell Distribution Width 12.9 % (11.5-14.5); WBC 8.2 K/mcL (4.5-11.0)
[2019-04-20 07:24] LABS: ALT/SGPT 6 U/l (0-40); AST/SGOT 9 U/l (0-37); Albumin 2.6 gm/dL (3.2-5.2); Albumin/Globulin Ratio 0.9 (1.0-2.3); Alkaline Phosphatase 86 U/L (39-117); Bilirubin,Direct < 0.2 mg/dL (0.0-0.3); Bilirubin,Total 0.2 mg/dL (0.0-1.0); Blood Urea Nitrogen 27 mg/dl (6-20); Calcium 8.1 mg/dl (8.6-10.4); Carbon Dioxide 25 mmol/L (22-30); Chloride 96 mmol/L (96-108); Glomerular Filtration Rate 80; Glucose 164 mg/dL (70-105); Lactate Dehydrogenase 162 U/L (94-250); Phosphorous 2.3 mg/dL (2.7-4.5); Triglycerides 139 mg/dl (<150); Uric Acid 3.2 mg/dL (2.5-8.0)
[2019-04-20] MEDS: INSULIN GLARGINE, HUMAN 1 UNIT/0.01 ML SQ SCH (07:27)
[2019-04-20] MEDS: INSULIN LISPRO 1 UNIT/0.01 ML UNIT SQ SCH ×4 (07:27→21:37)
[2019-04-20] MEDS: PANTOPRAZOLE 40 MG TABLET PO SCH (07:27)
[2019-04-20] MEDS: HEPARIN 5,000 UNIT/ML VIAL SQ SCH ×2 (08:14→21:38)
[2019-04-20] MEDS: NICOTINE 14 MG PATCH TOPICAL SCH (08:14)
[2019-04-20] MEDS: FOLIC ACID 1 MG TABLET PO SCH (08:16)
[2019-04-20] MEDS: MULTIVIT,THER IRON,CA,FA & MIN 1 TABLET PO SCH (08:16)
[2019-04-20] MEDS: CARVEDILOL 3.125 MG TABLET PO SCH ×2 (08:16→17:39)
[2019-04-20] MEDS: TORSEMIDE 10 MG TABLET PO SCH (08:16)
[2019-04-20] MEDS: sitaGLIPtin 100 MG TABLET PO SCH (08:16)
[2019-04-20] MEDS: SPIRONOLACTONE 25 MG TABLET PO SCH (08:16)
[2019-04-20] MEDS: CYANOCOBALAMIN (VITAMIN B-12) 500 MCG TABLET PO SCH ×2 (08:16→21:39)
[2019-04-20] MEDS: DOCUSATE SODIUM 100 MG CAPSULE PO SCH ×2 (08:16→21:40)
[2019-04-20] MEDS: SERTRALINE 50 MG TABLET PO SCH (08:17)
[2019-04-20] MEDS: THIAMINE 100 MG TABLET PO SCH (08:17)
[2019-04-20 08:45] LABS: Basophils % (Manual) 1 % (0-2); Eosinophils % (Manual) 1 % (0-7); Lymphocytes % 18 % (15-49); Monocytes % (Manual) 6 % (1-12); Platelet Estimate NORMAL (NORMAL); RBC Morphology NORMAL (NORMAL); Reactive Lymphocytes 1 % (0-2); Segmented Neutrophils % 73 % (38-78)
[2019-04-20] MEDS ORDERED: VANCOMYCIN 1,500 MG in 0.9 % SODIUM CHLORIDE 500 ML IV SCH (09:00)
[2019-04-20] MEDS: VANCOMYCIN 1,500 MG in 0.9 % SODIUM CHLORIDE 500 ML IV SCH (11:33)
--- NOTE | 2019-04-20 12:00 | Internal Med Progress Note ---
Medical - PN: Subj Patient information: Note initiated : 04/20/19 at 11:57 am Service Date, if different from initiated Date: [] Patient: Remy Bocanegra a 49 y/o M admitted on 04/18/19 for right foot sore. Chief Complaint: [] Interval history: Mr. Bocanegra is a 49 year old M with history of poorly controlled diabetes/early CAD/CABG at age 48/PVD status post right big toe amputation who presents to the ER with right second toe infection/pain that has worsened over the last 4 weeks. Symptoms started after roughly a month ago patient injured his right second toe while working in the yard. Patient did not seek medical attention and continue to self address to wound however noticed wound getting worse turning bluish and then finally black along with increasing pain swelling. His blood sugar control also remain erratic. He denies associated fever shaking chills rash or joint pain. Initial work-up in the ER was consistent with sepsis with white count over 13,000 along with blood sugars over 350 and a cellulitic change on right foot imaging. Podiatry was consulted. Hospitalist services requested for admission in light of severe sepsis with cellulitis At the time of evaluation patient is alert and oriented. He was able to endorse history as above and answer to most of the questions. Denies diarrhea dysuria, rash, chest pain, cough, headache or photophobia. He follows up with Dr. Escoto cardiology at [facility] 04/19-patient doing well. No overnight events. Wound care podiatry consulted. White count of 12.6. On antibiotic coverage. Pain in good control. She was improving on basal prandial insulin. Keep n.p.o. evaluation by podiatry. Minimal anxiety. No concerns per nursing staff. Persistent tachycardia. Urine drug screen ordered. 04/20-patient doing well. Status post amputation. No overnight fever chills. Pain well controlled on IV opioids. Transition to oral opioids. De-escalate antibiotics in 24 hours based on sensitivities. Cultures of mixed polymicrobial with GPC/GNR. No overnight telemetry events except for tachycardia, improved this morning. White count normalized to 8000. Sodium 132. Improved blood sugars. - Constitutional Vitals: Vital Signs Temp Pulse Resp BP Pulse Ox 97.6 F 88 14 123/76 100 04/20/19 11:32 04/20/19 11:32 04/20/19 11:32 04/20/19 11:32 04/20/19 11:32 Period Temp Pulse Resp BP Sys/Craven Pulse Ox Last 24 Hr 97.6 F-99 F 63-119 14-20 101-153/62-108 95-100 Intake and Output 04/19/19 04/20/19 04/20/19 21:59 05:59 13:59 Intake Total 460 1720 1100 Output Total 1350 Balance 468 494 1556 Weight 176 lb Intake & Output: Intake & Output 04/19/19 04/20/19 04/20/19 21:59 05:59 13:59 Intake Total 460 1720 1100 Output Total 1350 Balance 661 622 2241 Weight 176 lb Intake: IV 100 1550 550 Sodium Chloride 0.9% 1,000 ml @ 1000 50 mls/hr IV .Q20H [facility] Rx#: [id number] Zosyn 3.375 gm In Dextrose 5% 100 50 50 in Water 50 ml @ 100 mls/hr IV Q6H [facility] Rx#:[id number] Vancomycin 1,500 mg In Sodium 500 500 Chloride 0.9% 500 ml @ 333.3 mls/hr IV DAILY [facility] Rx#: [id number] Oral 360 170 550 Output: Void Amount 1350 Other: Meal Dinner Breakfast Percent of Meal Consumed 50% 100% Feeding Ability Independent # Voids 1 1 General appearance: no acute distress Exam: Alert oriented Amputation site no significant swelling Nonlabored breathing No anxiety Medical - PN: Obj Da - Labs CBC & Chem 7: 04/20/19 04:00 04/20/19 04:00 Labs: Abnormal Lab Results 04/20/19 04/20/19 04/19/19 04:00 04:00 03:40 WBC RBC 3.36 L Hgb 10.3 L Hct 30.7 L Gran % Lymph % (Auto) Gran # Lymph # (Auto) Seg Neutrophils % Lymphocytes % ABG Methemoglobin VBG pCO2 VBG pO2 VBG HCO3 VBG Total CO2 VBG O2 Saturation VBG Base Excess Carboxyhemoglobin Sodium 132 L 130 L Chloride 90 L Anion Gap BUN 27 H 25 H Glucose 164 H 297 H Calcium 8.1 L Phosphorus 2.3 L Alkaline Phosphatase C-Reactive Protein Total Protein 5.6 L Albumin 2.6 L 3.0 L Globulin Albumin/Globulin Ratio 0.9 L 0.9 L Beta-Hydroxybutyrate Urine Protein Urine Glucose (UA) Urine Ketones Urine Occult Blood Urine RBC Hyaline Casts 04/19/19 04/18/19 04/18/19 03:40 19:26 19:10 WBC 12.6 H RBC 4.28 L Hgb 13.1 L Hct 39.3 L Gran % Lymph % (Auto) Gran # Lymph # (Auto) Seg Neutrophils % 82 H Lymphocytes % 8 L ABG Methemoglobin 0 L VBG pCO2 52.9 H VBG pO2 54 H VBG HCO3 30.8 H VBG Total CO2 32.4 H VBG O2 Saturation 75.0 H VBG Base Excess 4.4 H Carboxyhemoglobin 4.0 H Sodium Chloride Anion Gap BUN Glucose Calcium Phosphorus Alkaline Phosphatase C-Reactive Protein Total Protein Albumin Globulin Albumin/Globulin Ratio Beta-Hydroxybutyrate Urine Protein 100 A Urine Glucose (UA) >=500 A Urine Ketones 80 A Urine Occult Blood 0.2 A Urine RBC 13 H Hyaline Casts 7 H 04/18/19 04/18/19 04/18/19 15:49 15:49 15:49 WBC 13.4 H RBC Hgb Hct Gran % 89.8 H Lymph % (Auto) 5.3 L Gran # 12.1 H Lymph # (Auto) 0.7 L Seg Neutrophils % Lymphocytes % ABG Methemoglobin VBG pCO2 VBG pO2 VBG HCO3 VBG Total CO2 VBG O2 Saturation VBG Base Excess Carboxyhemoglobin Sodium 130 L Chloride 85 L Anion Gap 21.0 H BUN 24 H Glucose 361 H Calcium Phosphorus Alkaline Phosphatase 130 H C-Reactive Protein 5.4 H Total Protein Albumin Globulin 4.0 H Albumin/Globulin Ratio Beta-Hydroxybutyrate 3.47 H Urine Protein Urine Glucose (UA) Urine Ketones Urine Occult Blood Urine RBC Hyaline Casts Meds: Medications Acetaminophen (Tylenol) 650 mg PO Q4-6HP PRN PRN Reason: PAIN/FEVER > 101 Hydrocodone Bitart/Acetaminophen (Catherine 10/325mg) 1 tab PO Q4-6HP PRN PRN Reason: PAIN LEVEL 3-6 Last Admin: 04/20/19 07:31 Dose: 1 tab Documented by: Carvedilol (Coreg) 3.125 mg PO BIDCC [facility] Last Admin: 04/20/19 08:16 Dose: 3.125 mg Documented by: Cyanocobalamin (Vitamin B-12) 1,000 mcg PO BID [facility] Stop: 04/23/19 09:01 Last Admin: 04/20/19 08:16 Dose: 1,000 mcg Documented by: Dextrose (Dextrose 50%) 0 ml IV UD PRN PRN Reason: Hypoglycemia Diagnostic Test (Pha) (Accu-Chek) 1 each FS ACHS [facility] Last Admin: 04/20/19 11:30 Dose: 1 each Documented by: Docusate Sodium (Colace) 100 mg PO BID [facility] Last Admin: 04/20/19 08:16 Dose: 100 mg Documented by: Folic Acid (Folic Acid) 1 mg PO DAILY [facility] Last Admin: 04/20/19 08:16 Dose: 1 mg Documented by: Glucose (Insta-Glucose) 15 gm PO PRN PRN PRN Reason: Hypoglycemia Guaifenesin/Codeine Phosphate (Robitussin Ac) 10 ml PO Q4HP PRN PRN Reason: Cough Heparin Sodium (Porcine) (Heparin) 5,000 unit SQ Q12 [facility] Last Admin: 04/20/19 08:14 Dose: 5,000 unit Documented by: Heparin Sodium (Porcine) (Heparin Flush) 2 ml IV Q12 [facility] Last Admin: 04/20/19 08:15 Dose: 2 ml Documented by: Hydromorphone HCl (Dilaudid) 0.5 mg IV Q2HP PRN PRN Reason: PAIN LEVEL > 6 Last Admin: 04/20/19 11:45 Dose: 0.5 mg Documented by: Sodium Chloride (Sodium Chloride 0.9%) 1,000 mls @ 50 mls/hr IV .Q20H [facility] Stop: 04/21/19 08:34 Last Admin: 04/19/19 23:31 Dose: 50 mls/hr Documented by: Acetaminophen (Ofirmev) 1,000 mg in 100 mls @ 200 mls/hr IV Q6HP PRN PRN Reason: PAIN/FEVER > 101 Magnesium Sulfate (Magnesium Sulfate) 2 gm in 50 mls @ 50 mls/hr IV UD PRN PRN Reason: MG = or < 1.7 Piperacillin Sod/Tazobactam (Sod 3.375 gm/ Dextrose) 50 mls @ 100 mls/hr IV Q6H [facility]; Protocol Last Admin: 04/20/19 11:32 Dose: 100 mls/hr Documented by: Norepinephrine Bitartrate 16 (mg/ Sodium Chloride) 250 mls @ 9.375 mls/hr IV Q24HP PRN; Protocol PRN Reason: Hypotension Vancomycin HCl 1,500 mg/ (Sodium Chloride) 500 mls @ 333.3 mls/hr IV DAILY [facility] Last Infusion: 04/20/19 10:40 Dose: Infused Documented by: Insulin Glargine (Lantus) 20 unit SQ QHS [facility] Last Admin: 04/19/19 20:22 Dose: 20 units Documented by: Insulin Glargine (Lantus) 10 unit SQ DAILY [facility] Last Admin: 04/20/19 07:27 Dose: 10 unit Documented by: Insulin Human Lispro (Humalog) 0 unit SQ ACHS [facility]; Protocol Last Admin: 04/20/19 11:31 Dose: Not Given Documented by: Iron Carb/Multivit/Wreath Inspector/Folic Acid (Multivitamin W/Minerals) 1 tab PO DAILY [facility] Last Admin: 04/20/19 08:16 Dose: 1 tab Documented by: Magnesium Hydroxide (Milk Of Magnesia) 30 ml PO HSP PRN PRN Reason: Constipation Last Admin: 04/20/19 08:14 Dose: 30 ml Documented by: Nicotine (Nicoderm) 14 mg TOPICAL DAILY@1000 [facility] Last Admin: 04/20/19 08:14 Dose: 14 mg Documented by: Ondansetron HCl (Zofran) 4 mg IV Q4-6HP PRN PRN Reason: Nausea And Vomiting Pantoprazole Sodium (Protonix) 40 mg PO ACB [facility] Last Admin: 04/20/19 07:27 Dose: 40 mg Documented by: Potassium Chloride (Klor-Con) 40 meq PO DAILYP PRN PRN Reason: K+ < 3.5 Senna/Docusate Sodium (Senna Plus Tablet) 1 tab PO HS [facility] Last Admin: 04/19/19 20:23 Dose: Not Given Documented by: Sertraline HCl (Zoloft) 50 mg PO QAM [facility] Last Admin: 04/20/19 08:17 Dose: 50 mg Documented by: Sitagliptin Phosphate (Januvia) 100 mg PO DAILY [facility] Last Admin: 04/20/19 08:16 Dose: 100 mg Documented by: Sodium Chloride (Saline Flush) 10 ml IV Q8 [facility] Last Admin: 04/20/19 05:30 Dose: 10 ml Documented by: Spironolactone (Aldactone) 50 mg PO DAILY [facility] Last Admin: 04/20/19 08:16 Dose: 50 mg Documented by: Thiamine HCl (Vitamin B1) 100 mg PO DAILY [facility] Last Admin: 04/20/19 08:17 Dose: 100 mg Documented by: Torsemide (Demadex) 20 mg PO DAILY [facility] Last Admin: 04/20/19 08:16 Dose: 20 mg Documented by: Trazodone HCl (Desyrel) 50 mg PO HSP PRN PRN Reason: Insomnia Last Admin: 04/19/19 20:23 Dose: 50 mg Documented by: Vancomycin HCl (Vancomycin Per Pharmacy) 1 order IV UD [facility]; Protocol - ABG Interpretation ABG results: 04/18/19 19:26 ABG Methemoglobin 0 L VBG pH 7.38 VBG pCO2 52.9 H VBG pO2 54 H VBG HCO3 30.8 H VBG Total CO2 32.4 H VBG O2 Saturation 75.0 H VBG Base Excess 4.4 H Medical - PN: A/P - Time Spent With Patient Total time spent is greater than 50% in coordination of care (as documented) at patient's floor/unit and/or counseling patient: 25 - 35 minutes (1) Type 1 diabetes, uncontrolled, with cellulitis of foot Status: Acute Assessment and plan: * Cellulitis with gangrene right second toe-status post amputation by podiatry. Postop day 1. Continue antibiotic coverage and de-escalate based on culture sensitivities. Polymicrobial growth on initial cultures. * Pain management on as needed opioids. Transition to oral opioids * Poorly controlled diabetes continue basal prandial insulin. Continue CC diet/diabetic education. Improved fasting blood sugars * Severe sepsis second above continue broad antibiotic coverage of vancomycin and Zosyn. White count normalized, tachycardia resolved * GERD continue PPI * History of CAD/congestive heart failure continue CAMDEN inhibitor/beta- maxwell/spironolactone/Demadex * Anxiety disorder continue sertraline * Tobacco dependence continue nicotine patch * Full code * Prophylaxis heparin Plan * De-escalate antibiotics based on culture sensitivity * Diabetic diet * Transfer to medical floor * Wound care * Prior medical condition management as above Current Visit: Yes
[2019-04-20] MEDS: 0.9 % SODIUM CHLORIDE 1,000 ML IV SCH (12:42)
[2019-04-20] MEDS ORDERED: ACETAMINOPHEN 325 MG TABLET PO PRN (12:44)
[2019-04-20] MEDS ORDERED: MAGNESIUM SULFATE 2 GM/50 ML BAG IV PRN (12:44)
[2019-04-20] MEDS ORDERED: HYDROmorphone 2 MG/ML VIAL IV PRN (12:44)
[2019-04-20] MEDS ORDERED: ONDANSETRON 4 MG/2 ML VIAL IV PRN (12:44)
[2019-04-20] MEDS ORDERED: ACETAMINOPHEN 1,000 MG/100 ML BOTTLE IV PRN (12:44)
[2019-04-20] MEDS ORDERED: guaiFENesin/CODEINE 10 ML UDC PO PRN (12:44)
[2019-04-20] MEDS ORDERED: DEXTROSE 50% 50 ML VIAL IV PRN (12:44)
[2019-04-20] MEDS ORDERED: VANCOMYCIN PER PHARMACY IV SCH (12:44)
[2019-04-20] MEDS ORDERED: MAGNESIUM HYDROXIDE 30 ML ORAL.SUSP PO PRN (12:44)
[2019-04-20] MEDS ORDERED: DEXTROSE 31 GM ORAL.SUSP PO PRN (12:44)
[2019-04-20] MEDS ORDERED: POTASSIUM CHLORIDE 20 MEQ PACKET PO PRN (12:44)
[2019-04-20] MEDS ORDERED: INSULIN GLARGINE, HUMAN 1 UNIT/0.01 ML SQ SCH (21:00)
[2019-04-20] MEDS ORDERED: traZODone HCL 50 MG TABLET PO PRN (21:00)
[2019-04-20] MEDS ORDERED: SENNOSIDES/DOCUSATE SODIUM 1 TAB TABLET PO SCH (21:00)
[2019-04-21] MEDS: HYDROcodone/APAP 10/325MG TABLET PO PRN ×3 (01:19→12:34)
[2019-04-21] MEDS: 0.9 % SODIUM CHLORIDE 10 ML SYRINGE IV SCH (05:35)
[2019-04-21] MEDS: PIPERACILLIN SODIUM/TAZOBACTAM 3.375 GM in DEXTROSE 5% IN WATER 50 ML IV SCH (05:36)
[2019-04-21 07:07] LABS: Hematocrit 29.5 % (41.0-55.0); Hemoglobin 10.1 g/dL (13.5-16.5); Mean Cell Volume 90.8 fL (80.0-100.0); Mean Corpuscular HGB Conc 34.2 g/dL (31.0-36.0); Platelet Count 344 K/mcL (140-440); RBC 3.25 M/mcL (4.50-5.90); Red Cell Distribution Width 12.8 % (11.5-14.5); WBC 6.4 K/mcL (4.5-11.0)
[2019-04-21 07:27] LABS: ALT/SGPT 6 U/l (0-40); AST/SGOT 10 U/l (0-37); Albumin 3.2 gm/dL (3.2-5.2); Albumin/Globulin Ratio 1.1 (1.0-2.3); Alkaline Phosphatase 83 U/L (39-117); Bilirubin,Direct < 0.2 mg/dL (0.0-0.3); Bilirubin,Total 0.2 mg/dL (0.0-1.0); Blood Urea Nitrogen 17 mg/dl (6-20); Calcium 8.6 mg/dl (8.6-10.4); Carbon Dioxide 29 mmol/L (22-30); Chloride 98 mmol/L (96-108); Globulin 2.8 gm/dL (2.2-3.7); Glomerular Filtration Rate 89; Glucose 61 mg/dL (70-105); Lactate Dehydrogenase 149 U/L (94-250); Phosphorous 2.9 mg/dL (2.7-4.5); Triglycerides 130 mg/dl (<150); Uric Acid 3.3 mg/dL (2.5-8.0)
[2019-04-21] MEDS ORDERED: PANTOPRAZOLE 40 MG TABLET PO SCH (07:30)
[2019-04-21] MEDS: INSULIN LISPRO 1 UNIT/0.01 ML UNIT SQ SCH ×2 (07:30→11:39)
[2019-04-21] MEDS: HEPARIN 5,000 UNIT/ML VIAL SQ SCH (08:14)
[2019-04-21] MEDS: CYANOCOBALAMIN (VITAMIN B-12) 500 MCG TABLET PO SCH (08:16)
[2019-04-21] MEDS: CARVEDILOL 3.125 MG TABLET PO SCH (08:17)
[2019-04-21] MEDS: DOCUSATE SODIUM 100 MG CAPSULE PO SCH (08:17)
[2019-04-21] MEDS ORDERED: INSULIN GLARGINE, HUMAN 1 UNIT/0.01 ML SQ SCH (09:00)
[2019-04-21] MEDS ORDERED: sitaGLIPtin 100 MG TABLET PO SCH (09:00)
[2019-04-21] MEDS ORDERED: SERTRALINE 50 MG TABLET PO SCH (09:00)
[2019-04-21] MEDS ORDERED: VANCOMYCIN 1,500 MG in 0.9 % SODIUM CHLORIDE 500 ML IV SCH (09:00)
[2019-04-21] MEDS ORDERED: CIPROFLOXACIN 500 MG TABLET PO SCH (09:00)
[2019-04-21] MEDS ORDERED: MULTIVIT,THER IRON,CA,FA & MIN 1 TABLET PO SCH (09:00)
[2019-04-21] MEDS ORDERED: FOLIC ACID 1 MG TABLET PO SCH (09:00)
[2019-04-21] MEDS ORDERED: SPIRONOLACTONE 25 MG TABLET PO SCH (09:00)
[2019-04-21] MEDS ORDERED: THIAMINE 100 MG TABLET PO SCH (09:00)
[2019-04-21] MEDS ORDERED: TORSEMIDE 10 MG TABLET PO SCH (09:00)
[2019-04-21] MEDS ORDERED: NICOTINE 14 MG PATCH TOPICAL SCH (10:00)
--- NOTE | 2019-04-21 10:23 | Discharge Summary ---
Medical - DS: Prov Patient information: Note initiated : 04/21/19 at 10:21 am Service Date, if different from initiated Date: [] Patient: Remy Bocanegra 49 y/o M admitted on 04/18/19 for right foot sore. Chief Complaint: [] Date of admission: 04/18/19 20:31 Discharge date: 04/21/19 Primary care physician: Roma Fernando Consults: 04/18/19 18:10 Consult to Physician [CONS] Routine Comment: Consulting Provider: Aubrey Marques Reason For Exam: Physician to Consult 04/19/19 09:36 Consult to Physician [CONS] Routine Comment: Consulting Provider: Jonny Tello Reason For Exam: Physician to Consult Medical - DS: Meds - Discharge Medications Prescriptions: Ciprofloxacin [Cipro] 500 mg PO BID #56 tab Transmission Status: Pending to [facility] Active and Home Medications: Home Medications insulin glargine 100) 100 unit/mL subcutaneous solution 20 unit SUB-Q QHS #10 ml 12/19/15 [Rx Confirmed 04/20/19 Last Taken 10/31/16] insulin lispro 100) 100 unit/mL subcutaneous solution 10 unit SUB-Q TID #10 ml 12/19/15 [Rx Confirmed 04/20/19 Last Taken 10/31/16] ramipril 2.5 mg capsule 2.5 mg PO QDAY #60 cap 12/19/15 [Rx Confirmed 04/20/19 Last Taken 10/31/16] Carvedilol [Coreg] 3.125 mg PO BID 04/18/19 [History Confirmed 04/18/19 Last Taken Unknown] Pantoprazole Sodium 40 mg PO AC 04/18/19 [History Confirmed 04/18/19 Last Taken Unknown] Sertraline [Zoloft] 50 mg PO QAM 04/18/19 [History Confirmed 04/18/19 Last Taken Unknown] Spironolactone [Aldactone] 50 mg PO DAILY 04/18/19 [History Confirmed 04/18/19 Last Taken Unknown] Torsemide [Demadex] 20 mg PO DAILY 04/18/19 [History Confirmed 04/18/19 Last Taken Unknown] Ciprofloxacin [Cipro] 500 mg PO BID #56 tab 04/21/19 [Rx Last Taken Unknown] Medical - DS: Hosp Hospital Course: Discharge diagnosis * Osteomyelitis with cellulitis and gangrene right second toe-status post amputation by podiatry. Postop day 2. Continue ciprofloxacin for 4-week as per ID recommendations. Enterobacter on wound culture * Pain management on as needed opioids. * Poorly controlled diabetes continue basal prandial insulin. Continue CC diet/outpatient diabetic education. * Severe sepsis clinically resolved. * GERD continue PPI * History of CAD/congestive heart failure continue CAMDEN inhibitor/beta- maxwell/spironolactone/Demadex * Anxiety disorder continue sertraline * Tobacco dependence continue nicotine patch Brief hospital course Mr. Bocanegra is a 49 year old M with history of poorly controlled diabetes/early CAD/CABG at age 48/PVD status post right big toe amputation who presents to the ER with right second toe infection/pain that has worsened over the last 4 weeks. Symptoms started after roughly a month ago patient injured his right second toe while working in the yard. Patient did not seek medical attention and continue to self address to wound however noticed wound getting worse turning bluish and then finally black along with increasing pain swelling. His blood sugar control also remain erratic. He denies associated fever shaking chills rash or joint pain. Initial work-up in the ER was consistent with sepsis with white count over 13,000 along with blood sugars over 350 and a cellulitic change on right foot imaging. Podiatry was consulted. Hospitalist services requested for admission in light of severe se psis with cellulitis At the time of evaluation patient is alert and oriented. He was able to endorse history as above and answer to most of the questions. Denies diarrhea dysuria, rash, chest pain, cough, headache or photophobia. He follows up with Dr. Escoto cardiology at [facility] 04/19-patient doing well. No overnight events. Wound care podiatry consulted. White count of 12.6. On antibiotic coverage. Pain in good control. She was improving on basal prandial insulin. Keep n.p.o. evaluation by podiatry. Minimal anxiety. No concerns per nursing staff. Persistent tachycardia. Urine drug screen ordered. 04/20-patient doing well. Status post amputation. No overnight fever chills. Pain well controlled on IV opioids. Transition to oral opioids. De-escalate antibiotics in 24 hours based on sensitivities. Cultures of mixed polymicrobial with GPC/GNR. No overnight telemetry events except for tachycardia, improved this morning. White count normalized to 8000. Sodium 132. Improved blood sugars. 04/21-wound culture reveals Enterobacter. ID recommends 4 weeks of oral ciprofloxacin. Patient can be discharged with outpatient wound care/instruction for close blood sugar monitoring to aid rapid wound healing. New follow-up with podiatry/wound care outpatient. Operative recommendations as per podiatry. Instructions as below. Discharge diagnosis: . - Time Spent with Patient Total time spent providing and/or coordinating discharge services: Greater than 30 minutes Medical - DS: Exam - Constitutional Vitals: Vital Signs Temp Pulse Resp BP BP Pulse Ox 04/21/19 08:00 97.8 F 87 16 116/74 98 04/21/19 04:00 98.0 F 92 H 16 116/72 96 04/20/19 23:18 97.6 F 104 H 18 103/67 99 04/20/19 19:57 98.9 F 98 H 16 101/60 99 04/20/19 16:00 98 F 95 H 16 108/75 100 04/20/19 11:32 97.6 F 88 14 123/76 100 Intake and Output 04/20/19 04/21/19 04/21/19 21:59 05:59 13:59 Intake Total 50 50 Balance 50 50 Intake: IV 50 50 Zosyn 3.375 gm In Dextrose 5% 50 50 in Water 50 ml @ 100 mls/hr IV Q6H [facility] Rx#:[id number] Other: Meal Nourishment/Supplement Percent of Meal Consumed 100% Nourishment/Supplement name fruit cup # Voids 1 Weight 170 lb 6.4 oz Medical - DS: Data Labs on day of discharge: Labs from last 24 hours 04/21/19 04/21/19 04/21/19 08:03 04:00 04:00 WBC 6.4 RBC 3.25 L Hgb 10.1 L Hct 29.5 L MCV 90.8 MCH 31.0 MCHC 34.2 RDW 12.8 Plt Count 344 MPV 8.0 Total Counted Pending Band Neutrophils % Not Reportable Platelet Estimate Pending RBC Morphology Pending Sodium 137 Potassium 3.7 Chloride 98 Carbon Dioxide 29 Anion Gap 10.0 BUN 17 Creatinine 1.0 GFR Calculation 89 Glucose 61 L Uric Acid 3.3 Calcium 8.6 Phosphorus 2.9 Magnesium 2.1 Total Bilirubin 0.2 Direct Bilirubin < 0.2 GGT 15 AST 10 ALT 6 Alkaline Phosphatase 83 Lactate Dehydrogenase 149 Total Protein 6.0 Albumin 3.2 Globulin 2.8 Albumin/Globulin Ratio 1.1 Triglycerides 130 Vancomycin Trough 15.3 Preliminary micro results at discharge 04/19/19 12:35 Anaerobic Culture - Preliminary Toe - Second 04/18/19 19:11 Tissue Culture - Preliminary Toe - Second Enterobacter cloacae Klebsiella oxytoca Corynebacterium species Coagulase negative staph 04/18/19 18:27 Blood Culture - Preliminary Blood 04/18/19 18:18 Blood Culture - Preliminary Blood Medical - DS: A/P - Patient/Caregiver Discharge Instructions Activity: increase activity as tolerated Diet: Consistent Carbohydrate Additional Instructions: Follow-up with Dr. Tello podiatry in 1 week continue wound care recommendations as per podiatry Optimize blood sugar management and follow-up primary care physician in 4 to 5 days Continue close monitoring of blood sugars to prevent wound infection Continue oral ciprofloxacin 500 mg twice daily for additional 4 weeks Follow-up with ID specialist in 4 weeks Increase Lantus to total 30 units a day and titrate as indicated Prescriptions: Ciprofloxacin [Cipro] 500 mg PO BID #56 tab Transmission Status: Pending to [facility] 2006 Other Amb Orders: C-Reactive Protein Location: None Selected Complete Blood Count Location: None Selected Comprehensive Metabolic Panel Location: None Selected Erythrocyte Sedimentation Rate Location: None Selected - Problem Maintenance (1) Type 1 diabetes, uncontrolled, with cellulitis of foot Status: Acute - Follow up Plan Follow up with: Roma Fernando ARNP [Primary Care Provider] - Disposition: Home, Self-Care Prognosis: Fair Rehab Potential: Fair I certify that the patient requires SNF services: No Overall status at discharge: patient is progressing back to baseline
[2019-04-21 10:48] LABS: Eosinophils % (Manual) 1 % (0-7); Lymphocytes % 18 % (15-49); Monocytes % (Manual) 5 % (1-12); Platelet Estimate NORMAL (NORMAL); RBC Morphology NORMAL (NORMAL); Segmented Neutrophils % 76 % (38-78)
--- NOTE | 2019-04-21 11:19 | Infectious Disease Consult ---
History of Present Illness Patient information: Note initiated : 04/21/19 at 10:50 am Service Date, if different from initiated Date: [] Patient: Remy Bocanegra 49 y/o M admitted on 04/18/19 for right foot sore. Chief Complaint: [] Requesting Physician: Aubrey Marques History of present illness: 49 year old man with PMHx of poorly controlled diabetes, PAD, CAD s/p CABG, s/p right big toe amputation was admitted on 04/18 with right 2nd toe swelling, pain going on for last 4 weeks, after he sustained a fall while working at home about 1 mnth ago. Pt didnot seek medical atttention until the toe started turning blue-black along with worsening pain and swelling. He didnot have fever/chills. In ED: afebrile, HR 103, BP 138/93, satting well on RA, WBC 13.4k, CRP 5.4. Rt 2nd toe xray: "Cellulitis surrounding the distal phalanx of the right second toe. The patient is at high risk of osteomyelitis" Would cultures and blood Cx sent at adm. Pt was evaluated by Podiatry and underwent Amputation, right second toe at the metatarsophalangeal joint on 04/19. Op Cx sent, which grew Enterobacter cloacae (sens to Cipro). Pt was seen by me on day of discharge. He confirmed above Hx. Added that he is still injecting IV drugs with last use on his birthday (few days ago). Review of Systems All systems PM: reviewed and no additional remarkable complaints except as stated Constitutional: as per HPI Past History Past family history: no sick contacts Past social history: lives in [place], [place] Medications and Allergies Home Medications Medication Instructions Recorded Confirmed Type insulin glargine 100) 100 unit/mL 20 unit SUB-Q QHS #10 ml 12/19/15 04/20/19 Rx subcutaneous solution insulin lispro 100) 100 unit/mL 10 unit SUB-Q TID #10 ml 12/19/15 04/20/19 Rx subcutaneous solution ramipril 2.5 mg capsule 2.5 mg PO QDAY #60 cap 12/19/15 04/20/19 Rx Carvedilol [Coreg] 3.125 mg PO BID 04/18/19 04/18/19 History Pantoprazole Sodium 40 mg PO AC 04/18/19 04/18/19 History Sertraline [Zoloft] 50 mg PO QAM 04/18/19 04/18/19 History Spironolactone [Aldactone] 50 mg PO DAILY 04/18/19 04/18/19 History Torsemide [Demadex] 20 mg PO DAILY 04/18/19 04/18/19 History Ciprofloxacin [Cipro] 500 mg PO BID #56 tab 04/21/19 Rx HYDROcodone/ACETAMINOPHEN [[place] 1 each PO PRN PRN #20 tab 04/21/19 Rx 10-325 Tablet] Insulin Glargine, Human [Lantus] 10 unit SQ DAILY #0 unit 04/21/19 Rx Allergies Allergy/AdvReac Type Severity Reaction Status Date / Time No Known Drug Allergies Allergy Verified 04/18/19 13:04 Physical Examination Vital signs: Temp Pulse Resp BP Pulse Ox 36.6 C 87 16 116/74 98 04/21/19 08:00 04/21/19 08:00 04/21/19 08:00 04/21/19 08:00 04/21/19 08:00 General appearance: no acute distress Eyes pulmonary: nonicteric ENT: oropharynx moist Auscultation: bilateral: clear Cardiovascular: other (s1 s2 normal, no murmurs heard) Gastrointestinal: normoactive bowel sounds, non-tender Extremities: other (rt 2nd toe stump: stitches secure, minimal serosanguineous drainage, no tenderness, has peripheral neuropathy (absence of pain), peripheral pulses barely palpable) Results - Laboratory Findings CBC and BMP: 04/21/19 04:00 04/21/19 04:00 PT/INR, D-dimer PT 14.1 sec (11.9-14.5) 04/19/19 11:24 INR 1.1 (0.9-1.1) 04/19/19 11:24 Abnormal lab findings: Abnormal Labs 04/18/19 04/18/19 04/18/19 15:49 15:49 15:49 WBC 13.4 H RBC Hgb Hct Gran % 89.8 H Lymph % (Auto) 5.3 L Gran # 12.1 H Lymph # (Auto) 0.7 L Seg Neutrophils % Lymphocytes % ABG Methemoglobin VBG pCO2 VBG pO2 VBG HCO3 VBG Total CO2 VBG O2 Saturation VBG Base Excess Carboxyhemoglobin Sodium 130 L Chloride 85 L Anion Gap 21.0 H BUN 24 H Glucose 361 H Calcium Phosphorus Alkaline Phosphatase 130 H C-Reactive Protein 5.4 H Total Protein Albumin Globulin 4.0 H Albumin/Globulin Ratio Beta-Hydroxybutyrate 3.47 H Urine Protein Urine Glucose (UA) Urine Ketones Urine Occult Blood Urine RBC Hyaline Casts 04/18/19 04/18/19 04/19/19 19:10 19:26 03:40 WBC 12.6 H RBC 4.28 L Hgb 13.1 L Hct 39.3 L Gran % Lymph % (Auto) Gran # Lymph # (Auto) Seg Neutrophils % 82 H Lymphocytes % 8 L ABG Methemoglobin 0 L VBG pCO2 52.9 H VBG pO2 54 H VBG HCO3 30.8 H VBG Total CO2 32.4 H VBG O2 Saturation 75.0 H VBG Base Excess 4.4 H Carboxyhemoglobin 4.0 H Sodium Chloride Anion Gap BUN Glucose Calcium Phosphorus Alkaline Phosphatase C-Reactive Protein Total Protein Albumin Globulin Albumin/Globulin Ratio Beta-Hydroxybutyrate Urine Protein 100 A Urine Glucose (UA) >=500 A Urine Ketones 80 A Urine Occult Blood 0.2 A Urine RBC 13 H Hyaline Casts 7 H 04/19/19 04/20/19 04/20/19 03:40 04:00 04:00 WBC RBC 3.36 L Hgb 10.3 L Hct 30.7 L Gran % Lymph % (Auto) Gran # Lymph # (Auto) Seg Neutrophils % Lymphocytes % ABG Methemoglobin VBG pCO2 VBG pO2 VBG HCO3 VBG Total CO2 VBG O2 Saturation VBG Base Excess Carboxyhemoglobin Sodium 130 L 132 L Chloride 90 L Anion Gap BUN 25 H 27 H Glucose 297 H 164 H Calcium 8.1 L Phosphorus 2.3 L Alkaline Phosphatase C-Reactive Protein Total Protein 5.6 L Albumin 3.0 L 2.6 L Globulin Albumin/Globulin Ratio 0.9 L 0.9 L Beta-Hydroxybutyrate Urine Protein Urine Glucose (UA) Urine Ketones Urine Occult Blood Urine RBC Hyaline Casts 04/21/19 04/21/19 04:00 04:00 WBC RBC 3.25 L Hgb 10.1 L Hct 29.5 L Gran % Lymph % (Auto) Gran # Lymph # (Auto) Seg Neutrophils % Lymphocytes % ABG Methemoglobin VBG pCO2 VBG pO2 VBG HCO3 VBG Total CO2 VBG O2 Saturation VBG Base Excess Carboxyhemoglobin Sodium Chloride Anion Gap BUN Glucose 61 L Calcium Phosphorus Alkaline Phosphatase C-Reactive Protein Total Protein Albumin Globulin Albumin/Globulin Ratio Beta-Hydroxybutyrate Urine Protein Urine Glucose (UA) Urine Ketones Urine Occult Blood Urine RBC Hyaline Casts Microbiology: Microbiology 04/19/19 12:35 Toe - Second Gram Stain - Final 04/19/19 12:35 Toe - Second Gram Stain - Final 04/19/19 12:35 Toe - Second Anaerobic Culture - Preliminary 04/19/19 12:35 Toe - Second Gram Stain - Final 04/19/19 12:35 Toe - Second Wound Culture - Final Enterobacter species 04/18/19 19:11 Toe - Second Gram Stain - Final 04/18/19 19:11 Toe - Second Tissue Culture - Preliminary Enterobacter cloacae Klebsiella oxytoca Corynebacterium species Coagulase negative staph 04/18/19 18:27 Blood Blood Culture - Preliminary 04/18/19 18:18 Blood Blood Culture - Preliminary Assessment and Plan - Narrative A/P Narrative: A: 1. Rt great toe necrotic soft tissue infection with underlying osteomyelitis: POD 2, s/p amputation, right second toe at the metatarsophalangeal joint with operative Cx growing Enterobacter hormaechei (sens to Cipro and other antibiotics) - given concerns for clear demarcation margins on forefoot amputations, post-op antibiotics for few weeks are often effective in complete treatment of the infection. A PO regimen is preferred given pt's history of active IV drug use (last use, heroin inj, few days ago) 2. Active Inj drug use Recommendations: - Stop IV Vanc and IV Zosyn - Start PO Ciprofloxacin 500 mg bid x 4 weeks (stop date : May 17, 2019) - F/u labs: CBC, BMP and ESR and CRP every other week. Fax results to [phone] - Pt counseled to quit smoking, Inj drug use will follow up as OP on May 17 at 2 pm Timbo Serna MD Infectious diseases
--- NOTE | 2019-04-21 13:08 | Surgical Pathology Report ---
HISTOLOGY SPECIMEN MICROSCOPIC DIAGNOSIS DIGIT, RIGHT SECOND TOE, AMPUTATION: -- EPIDERMAL ULCERATION, ABSCESS AND ACUTE OSTEOMYELITIS. -- MARGINS VIABLE. (RLF:apple) CLINICAL HISTORY Type I diabetes; smoker. PROCEDURAL IMPRESSION Osteomyelitis. GROSS DESCRIPTION Received in formalin labeled right second toe per requisition, is a disarticulated toe. The toe measures 5 cm in length by up to 1.8 cm. The skin covers the distal portion of the toe and is notable for a doll to brown-black discoloration with ulcer surrounding and involving the nail bed. The skin, soft tissue and bone margins appear viable. Fourth Hand section submitted following decalcification. Cassettes A1-A2 - full cross section of toe. (A1 - distal; A2 - proximal). (EBD:apple) Electronically Signed by: Brit Alberto M.D.
== END 2019-04-21 13:00 | disposition home or self-care (01) | DRG 854 ==
LOC: ED 13:00 → ICU 20:31 → MEDSUR 04-20 17:25
PROVIDERS: ADMIT Internal Medicine; ATTEND Internal Medicine